=== PATIENT | female | born 1985 | race Caucasian/White ===

== ENCOUNTER 2021-02-26 14:17 | Inpatient (IN) | payer OTHER ==
[~2021-02-26] VITALS: Ht 157.5 cm; Wt 65.8 kg
== END 2021-03-01 10:42 | disposition home or self-care (01) | DRG 742 ==
LOC: ER 14:17 → SEC-K 02-27 09:10 → OB/GYN 02-27 09:10 → O/R 02-27 15:15 → OB/GYN 02-27 16:27
PROVIDERS: ADMIT Obstetrics & Gynecology; ATTEND Obstetrics & Gynecology
PROC: 0UT50ZZ Resection of Right Fallopian Tube, Open Approach (ICD-10-PCS; 2021-02-27)
PROC: 0UT00ZZ Resection of Right Ovary, Open Approach (ICD-10-PCS; principal; 2021-02-27 12:00)
DX: N83.53 Torsion of ovary, ovarian pedicle and fallopian tube (principal); N70.02 Acute oophoritis; N83.291 Other ovarian cyst, right side; N83.8 Other noninflammatory disorders of ovary, fallopian tube and broad ligament